=== PATIENT | male | born 1995 | race Two or more races ===

== ENCOUNTER 2017-09-24 09:55 | Emergency (ER) | payer BC ==
[~2017-09-24] VITALS: Ht 172.7 cm; Wt 81.1 kg
[2017-09-24] MEDS ORDERED: METHOCARBAMOL 750 MG TABLET ONE (10:26)
[2017-09-24] MEDS ORDERED: IBUPROFEN 200 MG TABLET ONE (10:27)
[2017-09-24] MEDS ORDERED: METHOCARBAMOL 750 MG TABLET PO ONE (10:30)
[2017-09-24] MEDS ORDERED: IBUPROFEN 800 MG TABLET PO SCH (10:30)
[2017-09-24 11:15] VITALS: BP 138/77
== END 2017-09-24 11:18 | disposition home or self-care (01) ==
LOC: ED 11:12
DX: S29.012A Strain of muscle and tendon of back wall of thorax, initial encounter (principal); X50.3XXA Overexertion from repetitive movements, initial encounter; Y93.89 Activity, other specified; Y99.8 Other external cause status; Y92.89 Other specified places as the place of occurrence of the external cause
CPT/HCPCS: 71046; 99284